=== PATIENT | male | born 1960 | race American Indian/Alaskan Native ===

== ENCOUNTER 2016-06-21 18:26 | Emergency (ER) | payer BC, OTHER ==
[2016-06-21] MEDS ORDERED: BENADRYL IV ONE (21:32)
[2016-06-21] MEDS ORDERED: REGLAN IV ONE (21:32)
[2016-06-21] MEDS ORDERED: TORADOL IV ONE (21:32)
--- NOTE | 2016-06-21 21:36 | Emergency Department Report ---
ED Headache HPI - General Chief Complaint: Headache Stated Complaint: MIGRAINE/HIGH BLOOD PRESSURE Time Seen by Provider: 06/21/16 21:30 - History of Present Illness Initial Comments: 55-year-old -[place] male with no past medical history comes in today for headache. Patient reports his head and having severe headaches on and off for the past 3 months. But this seems to be getting worse. He denies any nausea vomiting but does admit to sweating and dizziness throbbing denies any change of vision denies any ringing of the ear. He reports he has been taking Goody powders, Excedrin, Tylenol without much relief. Allergies/Adverse Reactions: Allergies No Known Allergies Allergy (Unverified 08/21/13 12:45) Home Medications: Ambulatory Orders Butalb/Acetaminophen/Caffeine [Fioricet 50-300-40 mg CAP] 1 cap PO Q8HR PRN #15 cap 06/22/16 ED Review of Systems ROS: Stated complaint: MIGRAINE/HIGH BLOOD PRESSURE Other details as noted in HPI Constitutional: fever. denies: chills, weakness Eyes: denies: eye pain, eye discharge, vision change ENT: denies: ear pain, throat pain Respiratory: denies: cough, shortness of breath, wheezing Cardiovascular: denies: chest pain, palpitations Endocrine: no symptoms reported Gastrointestinal: denies: abdominal pain, nausea, diarrhea Genitourinary: denies: urgency, dysuria Musculoskeletal: denies: back pain, joint swelling, arthralgia Skin: denies: rash, lesions Neurological: headache. denies: weakness, paresthesias Psychiatric: denies: anxiety, depression Hematological/Lymphatic: denies: easy bleeding, easy bruising ED Past Medical Hx - Past Medical History Additional medical history: GI Problem - Ulcer - Surgical History Past Surgical History?: No - Social History Smoking Status: Never Smoker Substance Use Type: None - Medications Home Medications: Home Medications Medication Instructions Recorded Confirmed Last Taken Type Butalb/Acetaminophen/Caffeine 1 cap PO Q8HR PRN #15 cap 06/22/16 Unknown Rx [Fioricet 50-300-40 mg CAP] ED Physical Exam - General Limitations: No Limitations General appearance: alert, in no apparent distress - Head Head exam: Present: atraumatic, normocephalic - Eye Eye exam: Present: normal appearance, PERRL, EOMI - ENT ENT exam: Present: mucous membranes moist - Extremities Exam Extremities exam: Present: normal inspection, full ROM - Expanded Neurological Exam Expanded Speech: Present: fluid speech Cranial nerves: EOM's Intact: Normal, Gag Reflex: Normal, Tongue Deviation: Normal, Nystagmus: Normal Cerebellar function: Finger to Nose: Normal, Heel to Romero: Normal, Romberg: Normal Upper motor neuron: Charles Neglect: Normal, Pronator Drift: Normal Sensory exam: Upper Extremity Light Touch: Normal, Upper Extremity Pin Prick: Normal, Upper Extremity Temperature: Normal, UE 2 Point Discrimination: Normal Motor strength exam: RUE: 5, LUE: 5, RLE: 5, LLE: 5 Best Eye Response ([place]): (4) open spontaneously Best Motor Response ([place]): (6) obeys commands Best Verbal Response ([place]): (5) oriented [place] Total: 15 - Psychiatric Psychiatric exam: Present: normal affect - Skin Skin exam: Present: warm, dry, intact ED Course Vital Signs 06/21/16 18:36 Temperature 98.3 F Pulse Rate 69 Respiratory 18 Rate Blood Pressure 162/98 O2 Sat by Pulse 100 Oximetry - Reevaluation(s) Reevaluation #1: 06/22/16 00:56 Temperature feels much better after having his IV medication. ED Medical Decision Making - Lab Data Result diagrams: 06/21/16 21:51 - Medical Decision Making Patient's been evaluated by this provider fast track. We will place an IV for IV Benadryl 50 mg, IV Toradol 30 mg IV, Reglan [address] scan to rule out any abnormalities. Critical care attestation.: If time is entered above; I have spent that time in minutes in the direct care of this critically ill patient, excluding procedure time. ED Disposition Clinical Impression: Headache Qualifiers: Headache type: tension-type Headache chronicity pattern: acute headache Intractability: not intractable Qualified Code(s): G44.209 - Tension-type headache, unspecified, not intractable Disposition: DISCHARGED TO HOME OR SELFCARE Is pt being admited?: No Does the pt Need Aspirin: No Condition: Stable Instructions: Acute Headache (ED) Additional Instructions: Please take headache medication as prescribed. Follow up with her primary care provider I have listed one below. Please drink plenty of fluids such as water. Prescriptions: Butalb/Acetaminophen/Caffeine [Fioricet 50-300-40 mg CAP] 1 cap PO Q8HR PRN #15 cap PRN Reason: Headache Referrals: PRIMARY CARE, [Primary Care Provider] - 3-5 Days MARY WAITE MD [Staff Physician] - 3-5 Days Forms: Work/School Release Form(ED)
[2016-06-21 22:58] LABS: Anion Gap 20 mmol/L; Blood Urea Nitrogen 11 mg/dL (9-20); Calcium 9.3 mg/dL (8.4-10.2); Carbon Dioxide 27 mmol/L (22-30); Chloride 100.6 mmol/L (98-107); Glucose 99 mg/dL (75-100); Sodium 144 mmol/L (137-145)
--- NOTE | 2016-06-22 00:32 | Cat Scan Report ---
FINAL REPORT PROCEDURE: CT HEAD/BRAIN WO CON TECHNIQUE: Computerized tomography of the head was performed without contrast material. HISTORY: headache COMPARISON: No prior studies are available for comparison. FINDINGS: Brain: Brain density appears normal. No evidence of intracranial hemorrhage. No parenchymal hemorrhage, mass lesions or mass effect are seen. No abnormal extraxial fluid collects or masses are seen. Nonspecific mineralization of the basal ganglia are visualized bilaterally. Ventricles: Ventricles are normal size and are midline. Bone Windows: No evidence of skull fracture. Paranasal sinuses: There is patchy mucosal disease in a few of the ethmoid air cells on the left. Frontal sinuses are hypoplastic although small aerated portion visualized appears clear. Maxillary sinuses are not included on this exam. Mastoid air cells: There is opacification of a few of the posterior inferior mastoid air cells on the right. Majority of the mastoid air cells on the right are clear. Left mastoid air cells are clear. IMPRESSION: No acute or focal intracranial abnormality is seen. Mild paranasal sinus disease and mastoid air cell disease as described above. Please see above comments.
[2016-06-22 01:17] VITALS: BP 138/77
== END 2016-06-22 01:18 | disposition home or self-care (01) ==
LOC: ED 18:26
DX: G44.209 Tension-type headache, unspecified, not intractable (principal)
CPT/HCPCS: 36415; 70450; 80048; 96374; 96375; 99284; J1200; J1885; J2765

== ENCOUNTER 2016-07-01 01:13 | Emergency (ER) | payer BC ==
[2016-07-01] MEDS ORDERED: REGLAN ONE (01:44)
[2016-07-01] MEDS ORDERED: REGLAN IV ONE (01:57)
[2016-07-01 02:18] LABS: Basophils % (Auto) 1.6 % (0.0-1.8); Eosinophils % (Auto) 2.2 % (0.0-4.3); Hematocrit 48.7 % (35.5-45.6); Hemoglobin 16.1 gm/dl (11.8-15.2); Mean Corpuscular HGB Conc 33 % (32-34); Mean Corpuscular Hemoglobin 30 pg (28-32); Mean Corpuscular Volume 91 fl (84-94); Platelet Count 298 K/mm3 (140-440); Red Blood Count 5.37 M/mm3 (3.65-5.03); Red Cell Distribution Width 13.3 % (13.2-15.2); White Blood Count 5.6 K/mm3 (4.5-11.0)
[2016-07-01 02:30] LABS: Anion Gap 18 mmol/L; Blood Urea Nitrogen 10 mg/dL (9-20); Calcium 9.2 mg/dL (8.4-10.2); Carbon Dioxide 27 mmol/L (22-30); Chloride 102.6 mmol/L (98-107); Glucose 109 mg/dL (75-100); Potassium 3.7 mmol/L (3.6-5.0); Sodium 144 mmol/L (137-145)
--- NOTE | 2016-07-01 05:31 | Cat Scan Report ---
FINAL REPORT PROCEDURE: CT HEAD/BRAIN WO CON TECHNIQUE: Computerized tomography of the head was performed without contrast material. HISTORY: Headache, HTN COMPARISON: 06/21/2016 FINDINGS: Skull and scalp: Normal. Paranasal sinuses: Normal. Ventricles and subarachnoid spaces: Normal. Cerebrum: No evidence of hemorrhage, acute infarction or mass. There are some benign calcifications in both basal ganglia.. Cerebellum and brainstem: No evidence of hemorrhage, acute infarction or mass. Vasculature: Normal. Comments: None. IMPRESSION: There is no evidence of an acute intracranial process.
[2016-07-01] MEDS ORDERED: TYLENOL PO ONE (11:00)
[2016-07-01] MEDS ORDERED: MORPHINE IV ONE (12:11)
--- NOTE | 2016-07-01 12:39 | Emergency Department Report ---
HPI - General Chief Complaint: Headache Time Seen by Provider: 07/01/16 11:41 - HPI HPI: This is a 55-year-old Afro-[place] male who presents to the emergency department, driving himself in to be seen, with complaint of a acute on chronic frontal headache. The patient says that this is been going on for him for the past 3-4 months and he follows up with his primary care doctor, Dr. Strickland. He was placed on Rizatriptan, which she has been taking when he feels the headaches coming on but it did not work since last night. He has a bilateral frontal headache with some mild photophobia. He denies any blurry vision, slurred speech, neck pain or any neurological deficits. 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 No recent travel or sick contacts at home. He also has a history of GERD and GI ulcers. ED Past Medical Hx - Past Medical History Previous Medical History?: Yes Additional medical history: GI Problem - Ulcer. Migraine - Surgical History Past Surgical History?: No - Social History Smoking Status: Never Smoker Substance Use Type: None - Medications Home Medications: Home Medications Medication Instructions Recorded Confirmed Last Taken Type Butalb/Acetaminophen/Caffeine 1 cap PO Q8HR PRN #15 cap 06/22/16 Unknown Rx [Fioricet 50-300-40 mg CAP] ED Review of Systems ROS: Stated complaint: HEADACHE Other details as noted in HPI Comment: All other systems reviewed and negative Constitutional: denies: chills, fever Eyes: denies: eye discharge, vision change ENT: denies: ear pain, throat pain Respiratory: denies: cough, shortness of breath, wheezing Cardiovascular: denies: chest pain, palpitations Gastrointestinal: denies: abdominal pain, nausea, diarrhea Genitourinary: denies: urgency, dysuria Musculoskeletal: denies: back pain, joint swelling, arthralgia Skin: denies: rash, lesions Neurological: headache. denies: weakness Physical Exam - Physical Exam Vital Signs: Vital Signs 07/01/16 07/01/16 07/01/16 01:20 02:33 10:58 Temperature 97.4 F L 97.8 F Pulse Rate 65 59 L 57 L Respiratory 20 16 18 Rate Blood Pressure 132/90 135/90 Blood Pressure 171/100 [Left] Blood Pressure 180/106 [Right] O2 Sat by Pulse 99 97 Oximetry 07/01/16 11:00 Temperature Pulse Rate Respiratory 18 Rate Blood Pressure Blood Pressure [Left] Blood Pressure [Right] O2 Sat by Pulse Oximetry Physical Exam: GENERAL: The patient is well-developed well-nourished. HEENT: Normocephalic. Atraumatic. Extraocular motions are intact. Patient has moist mucous membranes. Pupils equal reactive to light bilaterally. Fatigable horizontal nystagmus. NECK: Supple. Trachea is midline. CHEST/LUNGS: Clear to auscultation. There is no respiratory distress noted. HEART/CARDIOVASCULAR: Regular. There is no tachycardia. There is no gallop rub or murmur. ABDOMEN: Abdomen is soft, nontender. Patient has normal bowel sounds. There is no abdominal distention. SKIN: There is no rash. There is no edema. There is no diaphoresis. NEURO: The patient is awake, alert, and oriented. The patient is cooperative. The patient has no focal neurologic deficits. The patient has normal speech. Cranial nerves II through XII grossly intact. MUSCULOSKELETAL: There is no tenderness or deformity. There is no limitation range of motion. There is no evidence of acute injury. ED Course Vital Signs 07/01/16 07/01/16 07/01/16 01:20 02:33 10:58 Temperature 97.4 F L 97.8 F Pulse Rate 65 59 L 57 L Respiratory 20 16 18 Rate Blood Pressure 132/90 135/90 Blood Pressure 171/100 [Left] Blood Pressure 180/106 [Right] O2 Sat by Pulse 99 97 Oximetry 07/01/16 11:00 Temperature Pulse Rate Respiratory 18 Rate Blood Pressure Blood Pressure [Left] Blood Pressure [Right] O2 Sat by Pulse Oximetry ED Medical Decision Making - Lab Data Result diagrams: 07/01/16 01:50 07/01/16 01:50 - Radiology Data Radiology results: report reviewed CT of the head does not show any acute process including no hemorrhage, mass, shift, diffuse edema or skull fracture. - Medical Decision Making 55-year-old male with a history of recent chronic or episodic headaches presents with a headache to the bilateral frontal region that began last night. There is some mild photophobia but no neurological deficits. On physical exam his cranial nerves are intact and there is no focal, motor or sensory deficits. He had a CT of the head without contrast that did not show any bleed , shift, ischemic changes, mass or any acute process. Vital signs stable. His ED course. He had some hypertension upon presentation but it came down without any significant intervention. The patient was given a single dose of narcotic pain medication and one hour later he was reevaluated and says that his headache has since resolved and is asking for discharge home. He already has a good follow-up with his primary care doctor, Dr. Strickland, but will be given a referral for neurology due to his chronic headaches. He has been encouraged to return to the emergency department with any worsening of his symptoms, development of any neurological deficits or any acute distress. - Differential Diagnosis migraine, tension headache, cluster headache, subarachnoid Critical Care Time: No Critical care attestation.: If time is entered above; I have spent that time in minutes in the direct care of this critically ill patient, excluding procedure time. ED Disposition Clinical Impression: Headache Qualifiers: Headache type: unspecified Headache chronicity pattern: episodic headache Intractability: not intractable Qualified Code(s): R51 - Headache Disposition: DISCHARGED TO HOME OR SELFCARE Is pt being admited?: No Condition: Stable Instructions: Acute Headache (ED) Additional Instructions: Please follow-up with your primary care doctor in the next few days. Return to the emergency department with any worsening of your symptoms or any acute distress. I given your referral for a local neurologist, Dr. Horowitz, follow-up regarding your headaches. Referrals: KHADAR STRICKLAND MD [Primary Care Provider] - 3-5 Days JESSICA HOROWITZ MD [Staff Physician] - 3-5 Days Forms: Work/School Release Form(ED) Time of Disposition: 13:51
[2016-07-01 12:43] VITALS: BP 128/67
== END 2016-07-01 14:16 | disposition home or self-care (01) ==
LOC: ED 01:13
DX: R51 Headache (principal)
CPT/HCPCS: 36415; 70450; 80048; 85025; 96374; 96375; 99284; J2270; J2765